=== PATIENT | female | born 1990 | race Caucasian/White ===

== ENCOUNTER 2017-01-23 09:12 | Emergency (ER) | payer SELFPAY ==
[~2017-01-23] VITALS: Ht 177.8 cm; Wt 97.0 kg
[~2017-01-23 09:12] MED LIST: ACET-2321 PO; SULF1TAB42 PO
[2017-01-23 09:15] VITALS: Ht 177.8 cm; Wt 97.0 kg
--- OUTSIDE RECORDS SUMMARY | 2017-01-23 09:16 | XMS REPORT | Continuity of Care Document ---
Author Author [facility] Organization [facility] Address Unknown Phone Unavailable Support Name Relationship Address Phone YOVANI BRINK Husam IT COMPLIANCE MANAGER Caregiver [address] [place] [phone] Unavailable KELY BRUCE Next Of Kin [address] [place] [id number] Insurance Providers Guarantor Agnieszka Mendoza Address [address] [place] [address] Email DENIED/NO TO PT [facility] [employer] [place] Other Policy Number [id number] Subscriber's Name Agnieszka Mendoza Relationship 18 Self Chief Complaint and Reason for Visit Chief Complaint Skin Rash/Abscess/Injury Reason for Visit [id number] Problems Active Problems Medical Problem Onset Date Status Acute tonsillitis Unknown Acute Acute tonsillitis Unknown Acute Bandemia Unknown Acute Headache Unknown Acute Leukocytosis Unknown Acute Pharyngitis, acute Unknown Acute Swallowing impairment Unknown Acute Swallowing impairment Unknown Acute Past Problems Medical Problem Onset Date Abrasion foot/toe Unknown Medications Current Home Medications Medication Dose Units Route Directions Days Qty Instructions Start Date Acetaminophen (Tylenol) 325 Mg Tablet 2 Tab Oral Twice A Day Sulfamethoxazole/Trimethoprim (Bactrim Ds Tablet) 1 Each Tablet 1 Tab Oral Twice A Day 7 Days 14 Tablet Take 1 tablet, by mouth, 2 times a day. Supervising physician Dr. Sven Pimentel Food Safety Officer [facility] [address] [facility] [phone] 06/05/16 Social History Social History Problem Response Recorded Date/Time Onset Date Status Chewing Tobacco Status No 12/18/2013 9:28pm Not Applicable Not Applicable Hx Substance Use No 01/28/2015 4:24pm Not Applicable Not Applicable Has the pt used tobacco in the last 12 months Yes 12/19/2013 12:13am Not Applicable Not Applicable Tobacco Usage none 12/19/2013 9:41am Not Applicable Not Applicable Hospital Discharge Instructions No hospital discharge instructions. Plan of Care Discharge Date 06/05/16 2:49pm Disposition 01 DISCHARGED HOME, SELF-CARE Condition at Discharge Stable Instructions/Education Provided Food Allergies and Sensitivities (Alternative Therapy) Cellulitis DI for Abrasion Prescriptions See Medication Section Additional Instructions/Education Take Bactrim as directed; avoid scratching foot. Take tylenol as needed for discomfort. Follow with primary care provider. Functional Status No functional status results. Allergies, Adverse Reactions, Alerts Allergen Type Severity Reaction Status Last Updated Amoxicillin Allergy Unknown THROAT SWELLING Active 06/05/16 Immunizations Query Response on File Recorded Date/Time Hx Influenza Vaccination Y JUN 2014 01/28/15 4:24pm Hx Influenza Vaccination Y JUN 2014 01/28/15 4:24pm Influenza Vaccine Hx UNKNOWN 06/05/16 2:16pm Tetanus Diptheria Vaccine History 2 YEARS AGO 06/05/16 2:16pm Vital Signs Acute Vital Signs Vital Response Date/Time Temperature (Fahrenheit) 98.8 deg F (96.8 - 99.1) 06/05/2016 2:03pm Temperature (Calculated Celsius) 37.52629 degrees C (36.0 - 37.3) 06/05/2016 2:03pm Pulse Rate (adult) 82 bpm (60 - 100) 06/05/2016 2:03pm Respiratory Rate 14 breaths/min (10 - 20) 06/05/2016 2:03pm O2 Sat by Pulse Oximetry 98 % (90 - 100) 06/05/2016 2:03pm Blood Pressure 110/67 mm Hg 06/05/2016 2:03pm Height (Feet) 5 feet 06/05/2016 2:03pm Height (Inches) 8.00 inches 06/05/2016 2:03pm Weight (Kilograms) 98.600 kg 06/05/2016 2:03pm Body Mass Index (BMI) 33.0 06/05/2016 2:03pm Results No known relevant diagnostic tests, laboratory data and/or discharge summary. Procedures No known history of procedures. Encounters Encounter Location Arrival/Admit Date Discharge/Depart Date Attending Provider Departed Emergency Room [facility] 06/05/16 1:46pm 06/05/16 2: 49pm YOVANI BRINK APRN Recent Diagnosis
--- NOTE | 2017-01-23 09:28 | ERPDOC ---
Departure Disposition Decision Date: January 23, 2017 Disposition Decision Time: 10:51 Disposition: 01 DISCHARGED HOME, SELF-CARE Impression Impression Impression: Primary Impression: Viral syndrome Severity: Moderate Condition: Stable Seen By: Physician only Patient Instructions: Viral Syndrome (ED) Problems/Meds/Labs Reviewed?: Yes Medications reviewed and manag: Yes Additional Instructions: Tessalon Perles, one tablet every 6 hours as needed for cough. You were given a small shot of steroid to help with inflammation and body aches. If you do not improve over the next few days, would recommend he see your primary care provider as this may be a bacterial infection still an early development. Follow up care ordered?: Yes Mental Status: Alert, Oriented Scripts Benzonatate (Benzonatate) 200 Mg Capsule 1 CAP PO Q6H Y for COUGH, #40 CAP DO NOT BITE, CHEW, OR CRUSH Prov: WADE MARROQUIN MD 01/23/17 HPI - Cough/URI General Chief Complaint: Fever Stated Complaint: FEVER, SORE THROAT, ACHES Time Seen by Provider: 09:23 HPI - Cough/URI Initial Comments 26-year-old female with cough and body aches which started yesterday. 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 She did get her influenza vaccine.Sore throat and pain swallowing this am. Feels like she has Allergies: Coded Allergies: amoxicillin (Verified Allergy, Unknown, THROAT SWELLING, 01/23/17) Past History Past Medical History Pt denies signifigant PMH Neurological: headaches Surgical History Denies Surgeries Family History Family PMH: FOUND: cancer, depression, diabetes, hypertension Vaccines Hx Influenza Vaccination: Yes (JUN 2014) Social History Substance Use Type: does not use Alcohol Intake: none Physical Exam General Vitals and Pain First Documented Vital Signs Date Time Temp Pulse Resp B/P Pulse Ox O2 Delivery O2 Flow Rate FiO2 01/23/17 09:15 100.3 106 17 120/72 99 Room Air Weight: Kilograms: Height (feet): 5 Height (inches): 8.00 Triage Pain Scale: Progress Results/Orders Orders Procedure Category Date Status Time Strep A Antigen Screen LAB 01/23/17 Complete 09:28 Influenza A/B By Pcr LAB 01/23/17 Complete 09:28 Group A Strep Culture FE 01/23/17 In Process 09:46 Dexamethasone Inj PHA 01/23/17 In Process (Decadron) 11:00 Lab Results Laboratory Tests Test 01/23/17 09:32 Influenza Virus Type A (PCR) Negative Influenza Virus Type B (PCR) Negative Group A Streptococcus Screen Negative Medications Current ED Medications Dexamethasone Sodium Phosphate (Decadron) 8 mg O ONCE IM ; Start 01/23/17 at 11 :00; Stop 01/23/17 at 11:01 Progress Progress Strep and influenza swabs negative. Patient does have viral syndrome. Will give her Decadron 8 mg IM to help with aches, [place] Perles to help with cough. Recommend she follow up with primary care provider if symptoms continue, as this may be a developing infection which were not seeing yet. WADE MARROQUIN MD January 23, 2017 09:28
[2017-01-23] MEDS ORDERED: IBUP-1724 PO (09:44)
[2017-01-23] MEDS ORDERED: NO ROUTINE MEDS (09:44)
--- NOTE | 2017-01-23 10:30 | NUR ---
PLAN OF CARE UPDATE WITH PT THAT FLU LAB NOT BACK YET, PT STATES "OKAY, THANK YOU".
[2017-01-23] MEDS ORDERED: BENZ200C36 PO (10:52)
[2017-01-23] MEDS ORDERED: DEXAMETHASONE 4mg/ml - 1ml INJECTION IM ONE (11:00)
[2017-01-23 11:16] VITALS: BP 120/72; PULSE 106; RESP 17; TEMP 100.3; O2SAT 99
== END 2017-01-23 11:13 | disposition home or self-care (01) ==
LOC: ED 09:12
DX: B34.9 Viral infection, unspecified (principal)
CPT/HCPCS: 87081; 87430; 87502; 96372